=== PATIENT | female | born 1995 | race Hispanic/Latino ===

== ENCOUNTER 2024-06-09 17:21 | Emergency (ER) | payer SELFPAY, OTHER ==
--- NOTE | 2024-06-09 18:50 | RAD REPORT ---
Exam:Forearm Left Clinical history: Left forearm pain Findings: No fracture or dislocation seen.
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
[2024-06-09 19:26] VITALS: O2SAT 100
[2024-06-09 19:32] VITALS: BP 118/89; TEMP 98.4
== END 2024-06-09 19:12 | disposition home or self-care (01) ==
LOC: ER 17:21
DX: S50.12XA Contusion of left forearm, initial encounter (principal)
CPT/HCPCS: 99283

== ENCOUNTER 2025-04-28 23:47 | Emergency (ER) | payer OTHER, SELFPAY ==
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
[2025-04-29 01:27] VITALS: BP 123/88; TEMP 97.8; O2SAT 100
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
== END 2025-04-29 01:18 | disposition home or self-care (01) ==
LOC: ER 23:47
DX: S09.22XA Traumatic rupture of left ear drum, initial encounter (principal)
CPT/HCPCS: 99283